=== PATIENT | female | born 1965 | race Caucasian/White ===

== ENCOUNTER → 2023-12-03 15:36 | Outpatient (REF) | payer BC, SELFPAY | LOC: RAD 15:36 | PROVIDERS: ATTENDING PHYSICIAN Obstetrics & Gynecology Gynecologic Oncology; FAMILY PHYSICIAN Student in an Organized Health Care Education/Training Program | DX: C54.1 Malignant neoplasm of endometrium (principal) | CPT/HCPCS: 71260; 74177; Q9967 ==

== ENCOUNTER → 2024-11-20 16:10 | Outpatient (REF) | payer BC, SELFPAY | LOC: RAD 16:10 | PROVIDERS: ATTENDING PHYSICIAN Obstetrics & Gynecology Gynecologic Oncology; FAMILY PHYSICIAN Internal Medicine | DX: R91.8 Other nonspecific abnormal finding of lung field (principal); I78.1 Nevus, non-neoplastic; R93.421 Abnormal radiologic findings on diagnostic imaging of right kidney; Z12.31 Encounter for screening mammogram for malignant neoplasm of breast; C54.1 Malignant neoplasm of endometrium | CPT/HCPCS: 71250; 74176 ==

== ENCOUNTER → 2024-11-30 18:40 | Outpatient (REF) | payer BC, SELFPAY | LOC: WDC 18:40 | PROVIDERS: ATTENDING PHYSICIAN Obstetrics & Gynecology Gynecologic Oncology; FAMILY PHYSICIAN Internal Medicine | DX: Z12.31 Encounter for screening mammogram for malignant neoplasm of breast (principal) | CPT/HCPCS: 77063; 77067 ==